=== PATIENT | female | born 1985 | race American Indian/Alaskan Native ===

== ENCOUNTER 2016-10-21 01:25 | Emergency (ER) | payer OTHER ==
--- NOTE | 2016-10-21 01:53 | OBHP ---
Datetime: 10/21/2016 01:38 IP Adm Impression: Term, intrauterine ; Ruptured Membranes IP Admit Plan Other: patient signed out AMA Admit Comment, IP Provider: chief complaint-leaking of fluid HPI 30 y/o at 39.5 wga with c/o leaking of fluid since 11pm 10/20/16 and mild contractions.P atient denies vaginal bleeidng.Patient states that she has active movement Patient denies nausea, vomiting, headache, chest pain, shortness of breath, numbness or tingling i n hands and feet course - care with dr flood [facility] b thalamassemia minor, sickle cell carrier, hypothyroidism PSH csection OBGYN HX ' [id number] Social hx denies tobacco,alcohol or illicit drug use Exam see exam section A/P 30 y/o at 39.5 wga with PROM.Early labor.Previous csection.Patient requetsing to be trans ferred to [facility] as she prefers to deliver there.Discussed with patient that due to rupture d membranes and labor in setting of previous csection do not recommend tranfer.Discussed risk of yarbrough sfer especially cord prolpase, distress, uterine rupture, danger of life to fetus and mother.Dion hairston states that she understands the risks involved .Patient signed out AMA. states he will t issa her to [facility] from here. Pelvic Type - PN: Adequate Extremities - PN: Normal Abdomen - PN: Normal Back - PN: Normal Lungs - PN: Normal Heart - PN: Normal Neurologic - PN: Normal General - PN: Normal Membranes, Provider: Ruptured Contraction Comments Provider: irregular Pool Provider: Positive Nitrazine Provider: Positive Ferning Provider: Positive IP Hx Assessment: The History has been Reviewed and is Current Vital Signs Provider: Reviewed; Within Normal Limits IP Chief Complaint: Uterine contractions; Suspected ruptured membranes FHR Category Provider Fetus A: Category I Dilatation, Provider: 1 Effacement, Provider: 70 Station, Provider: -1 Genitourinary Exam: Normal DTRs - PN: Normal
== END 2016-10-21 01:37 | disposition left against medical advice (07) ==
LOC: C.EROB 01:25
DX: O42.92 Full-term premature rupture of membranes, unspecified as to length of time between rupture and onset of labor (principal); Z3A.39 39 weeks gestation of pregnancy